=== PATIENT | female | born 1935 | race Caucasian/White ===

== ENCOUNTER 2019-05-19 | Emergency (ER) | payer MEDICARE ==
[2019-05-19 11:06] LABS: HEMATOCRIT 45.4 % (37.0-47.0); HEMOGLOBIN 14.6 g/dl (12.0-16.0); IMMATURE GRANULOCYTES 0.3 % (0.0-5.0); MEAN CELL VOLUME 97.8 fL CALC (80.0-100.0); MEAN CORPUSCULAR HGB 31.5 pG CALC (26.0-32.0); MEAN CORPUSCULAR HGB CONC 32.2 g/L CALC (32.0-36.0); NEUT# 3.97 thou/uL (2.00-7.15); RED BLOOD COUNT 4.64 mill/uL (4.20-5.60); RED CELL DISTRI WIDTH 13.7 % (11.5-15.5)
[2019-05-19 11:39] LABS: ALBUMIN 4.4 g/dL (3.2-5.0); ALKALINE PHOSPHATASE 107 u/l (38-126); BILIRUBIN, TOTAL 1.3 mg/dL (0.0-1.4); BUN 23 mg/dL (8-23); BUN/CREATININE RATIO 39 (12-20 (CALC)); CHLORIDE 106 mmol/l (95-108); CREATININE 0.6 mg/dL (0.5-1.0); GFR > 60 ML/MIN (>=60 (CALC)); GFR FOR AFR.AMER. > 60 ML/MIN (>=60 (CALC)); SGOT/AST 30 u/l (9-36); SODIUM 140 mmol/l (137-146); TOTAL PROTEIN 7.6 g/dL (6.3-8.2)
[2019-05-19 11:42] LABS: ANION GAP 16 (6-22 (CALC))
[2019-05-19 11:43] LABS: CARBON DIOXIDE 23 mmol/l (22-30); POTASSIUM 4.7 mmol/l (3.5-5.1)
[2019-05-19 11:56] LABS: URINE BILIRUBIN - DIPSTICK NEGATIVE (NEGATIVE); URINE BLOOD DIPSTICK MODERATE (NEGATIVE); URINE COLOR YELLOW; URINE GLUCOSE - DIPSTICK NEGATIVE (NEGATIVE); URINE KETONE NEGATIVE (NEGATIVE); URINE LEUK ESTERASE NEGATIVE (NEGATIVE); URINE NITRITE - DIPSTICK NEGATIVE (Negative); URINE PROTEIN - DIPSTICK NEGATIVE (NEG-TRACE); URINE SPECIFIC GRAVITY 1.025; URINE UROBILINOGEN - DIPSTICK 0.2 E.U./dL (0.2)
[2019-05-19 12:08] LABS: URINE SQUAMOUS EPITHELIAL CELL FEW EPI/hpf (0-FEW)
[2019-05-19] MEDS ORDERED: CEPHALEXIN500 M1 PO (13:58)
[2019-05-19] MEDS ORDERED: LASIX 40 MG TAB40 MG PO (14:17)
[2019-05-19] MEDS ORDERED: LEVOTHYROXIN100 MCG PO (14:17)
[2019-05-19] MEDS ORDERED: POT CHLORIDE10 ME5 PO (14:18)
== END 2019-05-19 14:15 | disposition home or self-care (01) ==
PROVIDERS: Family Medicine
DX: R31.9 Hematuria, unspecified (principal); E03.9 Hypothyroidism, unspecified

== ENCOUNTER 2020-03-10 22:32 | Observation (INO) | payer MEDICARE ==
[~2020-03-10] VITALS: Ht 162.6 cm; Wt 61.0 kg
[~2020-03-10 22:32] MED LIST: CEPHALEXIN500 M1 PO; LASIX 40 MG TAB40 MG PO; LEVOTHYROXIN100 MCG PO; POT CHLORIDE10 ME5 PO
--- NOTE | 2020-03-10 22:35 | NUR ---
AMBULATED TO ROOM WITH STEADY GAIT
[2020-03-10 23:33] LABS: IMMATURE GRANULOCYTES 0.4 % (0.0-5.0); MEAN CELL VOLUME 101.1 fL CALC (80.0-100.0); MEAN CORPUSCULAR HGB CONC 31.6 g/dL CAL (32.0-36.0); NEUT# 4.98 thou/uL (2.00-7.15); RED BLOOD COUNT 3.63 mill/uL (4.20-5.60); RED CELL DISTRI WIDTH 14.2 % (11.5-15.5)
[2020-03-10 23:34] LABS: HEMATOCRIT 36.7 % (37.0-47.0); HEMOGLOBIN 11.6 g/dl (12.0-16.0)
[2020-03-10 23:50] LABS: ALBUMIN 3.7 g/dL (3.2-5.0); AMYLASE 367 u/l (30-110); ANION GAP 11 (6-22 (CALC)); BUN 22 mg/dL (8-23); BUN/CREATININE RATIO 29 (12-20 (CALC)); CARBON DIOXIDE 31 mmol/l (22-30); CHLORIDE 102 mmol/l (95-108); CREATININE 0.8 mg/dL (0.5-1.0); GFR > 60 ML/MIN (>=60 (CALC)); GFR FOR AFR.AMER. > 60 ML/MIN (>=60 (CALC)); POTASSIUM 4.4 mmol/l (3.5-5.1); SODIUM 139 mmol/l (137-146); TOTAL PROTEIN 6.3 g/dL (6.3-8.2)
[2020-03-10 23:55] LABS: ALKALINE PHOSPHATASE 232 u/l (38-126); BILIRUBIN, TOTAL 3.4 mg/dL (0.0-1.4); SGOT/AST 304 u/l (9-36)
[2020-03-10 23:57] LABS: LIPASE 5478 u/l (23-300)
--- NOTE | 2020-03-10 23:57 | NUR ---
PATIENT RESTING QUIETLY AT THIS TIME, NO C/O PAIN OR DISCOMFORT, NO S/S OF DISTRESS NOTED, RESPIRATIONS EVEN AND UNLABORED, AWAITING RADIOLOGY.
--- NOTE | 2020-03-11 00:19 | NUR ---
PATIENT ABLE TO AMBULATE INDEPENDENTLY TOT HE BATHROOM TO PROVIDE URINE SAMPLE FOR THE LAB, NO C/O PAIN, NO S/S OF DISTRESS, AWAITING RADIOLOGY.
--- NOTE | 2020-03-11 00:48 | NUR ---
PATIENT RETURNED FROM RADIOLOGY, AWAITING DIAGNOSTIC RESULTS.
[2020-03-11 00:49] LABS: URINE BLOOD DIPSTICK NEGATIVE (NEGATIVE); URINE COLOR ORANGE; URINE GLUCOSE - DIPSTICK 100 mg/dL (NEGATIVE); URINE KETONE NEGATIVE (NEGATIVE); URINE NITRITE - DIPSTICK NEGATIVE (Negative); URINE PH 6.5 (4.5-8.0); URINE PROTEIN - DIPSTICK NEGATIVE (NEG-TRACE); URINE UROBILINOGEN - DIPSTICK >=8.0 E.U./dL (0.2)
[2020-03-11 00:59] LABS: URINE BACTERIA FEW hpf; URINE BILIRUBIN - DIPSTICK MODERATE (NEGATIVE); URINE LEUK ESTERASE SMALL (NEGATIVE); URINE MUCUS FEW hpf (NONE-FEW); URINE SQUAMOUS EPITHELIAL CELL FEW EPI/hpf (0-FEW)
--- NOTE | 2020-03-11 02:11 | NUR ---
HAND OFF REPORT GIVEN TO BEN
[2020-03-11 03:45] VITALS: BP 107/62
--- NOTE | 2020-03-11 05:23 | NUR ---
PT APPEARS TO BE SLEEPING COMFORTABLY, EYES CLOSED, RESPIRATIONS REGULAR AND UNLABORED. NO APPARENT DISTRESS. CALL [facility] [employer] WITHIN REACH.
[2020-03-11 05:35] VITALS: BP 100/54
[2020-03-11 06:53] LABS: ALBUMIN 3.2 g/dL (3.2-5.0); ALKALINE PHOSPHATASE 224 u/l (38-126); ANION GAP 11 (6-22 (CALC)); BILIRUBIN, TOTAL 3.6 mg/dL (0.0-1.4); BUN 18 mg/dL (8-23); BUN/CREATININE RATIO 28 (12-20 (CALC)); CARBON DIOXIDE 27 mmol/l (22-30); CHLORIDE 106 mmol/l (95-108); CREATININE 0.6 mg/dL (0.5-1.0); GFR > 60 ML/MIN (>=60 (CALC)); GFR FOR AFR.AMER. > 60 ML/MIN (>=60 (CALC)); SGOT/AST 338 u/l (9-36); SODIUM 140 mmol/l (137-146); TOTAL PROTEIN 5.6 g/dL (6.3-8.2)
[2020-03-11 07:16] VITALS: BP 96/43
--- NOTE | 2020-03-11 08:40 | NUR ---
PT IS VISING WITH IN ROOM. PT IS A&O X3. RESPS EVEN AND UNLABORED. PT DENIES PAIN AT THIS TIME. IVF INFUSING WELL. PT STATED SHE TOLERATED CLEAR LIQUID WELL. PT DENIES ANY NEEDS AT THIS TIME. CALL LIGHT IN REACH.
--- NOTE | 2020-03-11 12:32 | NUR ---
PT STATED SHE WAS ABLE TO EAT HER SOFT DIET FOOD WELL. PT DENIES PAIN AT THIS TIME. PT IN ROOM. PT WAITING FOR HER DC PAPER. TOLD HER I WILL WORK ON THEM. PT VERBALIZED UNDERSTANDING. CALL L[facility] IN REACH.
--- NOTE | 2020-03-11 13:45 | NUR ---
Discharge instructions given. Patient verbalizes understanding of same. Discharged in stable condition via Wheelchair to Home with spouse. All belongings sent with pt.
== END 2020-03-11 13:45 | disposition home or self-care (01) ==
LOC: ED 22:32 → ED-I 03-11 01:16 → ED 03-11 01:31 → MS2 03-11 01:32
PROVIDERS: Family Medicine; ADMIT Internal Medicine; ATTEND Internal Medicine
DX: K85.90 Acute pancreatitis without necrosis or infection, unspecified (principal); C22.9 Malignant neoplasm of liver, not specified as primary or secondary; E03.9 Hypothyroidism, unspecified; Z98.890 Other specified postprocedural states; Z20.828 Contact with and (suspected) exposure to other viral communicable diseases
CPT/HCPCS: J1650; Q9967; S0164